=== PATIENT | male | born 2000 | race Caucasian/White ===

== ENCOUNTER 2023-10-16 09:53 | Emergency (ER) | payer OTHER, SELFPAY ==
[2023-10-16 09:58] VITALS: BP 138/84; PULSE 78; RESP 16; TEMP 37; O2SAT 97; BMI 22.1
--- NOTE | 2023-10-16 10:34 | ED_ITS ---
HPI - General Adult General Chief complaint: Unspecified Complaint, Adult Stated complaint: Needs to get tested for c.diff Time Seen by Provider: 10/16/23 09:58 History of Present Illness HPI narrative: This 23-year-old male comes in stating a concern that he may have contracted Clostridium difficile. He states that he recently used to toilet after someone who has this infection. He does not have any symptoms but is concerned that he may have acquired this. He also asks if he can be tested for sexually transmitted diseases. He states that he has not been tested for many years and does not report any current symptoms. Related Data Home Medications ?Medication ?Instructions ?Recorded ?Confirmed No Known Home Medications 10/16/23 10/16/23 Allergies Allergy/AdvReac Type Severity Reaction Status Date / Time No Known Drug Allergies Allergy Verified 10/16/23 10:03 Review of Systems Status of ROS: Reports: 10 or more systems reviewed and unremarkable except as noted in History and below Narrative: Constitutional: No fevers, no weight gain or loss. Eyes: No discharge. No vision changes. HENT: No congestion, no sore throat, no ear pain. Cardiovascular: No chest pain, no palpitations. Respiratory: No shortness of breath, no wheezes, no cough. Gastrointestinal: No abdominal pain, no vomiting, no diarrhea. Genitourinary: No dysuria, no hematuria. Musculoskeletal: Normal range of motion. Skin: No rashes, no pruritis. Neurological: No dizziness, weakness, sensory change, speech change. Endo/Heme/Allergies: No bruising or bleeding. No polydipsia. Pysch: no suicidality, no insomnia. All other systems reviewed and are negative. Exam Narrative: Exam Narrative: Constitutional: Well-developed, well-nourished, no acute distress. HEENT: Normocephalic, atraumatic. Neck: Normal range of motion. Nontender. Supple. Heart: Intact distal pulses. Lungs: No chest discomfort. No wheezes, rhonchi, or rales. Abdomen: Nontender. Back: Normal range of motion. Extremities: Normal range of motion. No injury. Skin: Intact. No rash. Warm. No erythema or pallor. Neurologic: No altered sensation. No weakness. Alert and oriented. Psychiatric: No suicidality. No anxiety or depression. No insomnia. Nursing notes and vitals signs are reviewed. Const: Vital Signs, click to edit/add: Vital Signs - 24 hr 10/16/23 09:58 Temperature 98.6 F Pulse Rate [Pulse Oximeter] 78 Respiratory Rate 16 Blood Pressure [Ri ght Upper Arm] 138/84 Pulse Oximetry 97 Oxygen Delivery Me thod Room Air Course Vital Signs Vital signs: Initial Vital Signs Temperature 98.6 F 10/16/23 09:58 Temperature Source Temporal Artery Scan 10/16/23 09:58 Pulse Rate 78 10/16/23 09:58 Respiratory Rate 16 10/16/23 09:58 Blood Pressure 138/84 10/16/23 09:58 Blood Pressure Mean 102 10/16/23 09:58 Blood Pressure Position Sitting 10/16/23 09:58 Pulse Oximetry 97 10/16/23 09:58 Oxygen Delivery Method Room Air 10/16/23 09:58 Vital Signs Temperature 98.6 F 10/16/23 09:58 Pulse Rate 78 10/16/23 09:58 Respiratory Rate 16 10/16/23 09:58 Blood Pressure 138/84 10/16/23 09:58 Pulse Oximetry 97 10/16/23 09:58 Oxygen Delivery Method Room Air 10/16/23 09:58 Temperature 98.6 F 10/16/23 09:58 Pulse Rate 78 10/16/23 09:58 Respiratory Rate 16 10/16/23 09:58 Blood Pressure 138/84 10/16/23 09:58 Pulse Oximetry 97 10/16/23 09:58 Oxygen Delivery Method Room Air 10/16/23 09:58 Medical Decision Making MDM Narrative Medical decision making narrative: This patient arrives with normal vital signs and really has no symptoms but has a fear that he may have contracted Clostridium difficile and also worries that he may have some lower [place] underlying sexually transmitted disease. He does not have any diarrhea or fever or other symptoms that are suspicious for any type of infection. He is not having any diarrhea so the lab will not do a test for Clostridium difficile unless the stool sample is runny. The patient is also asking for testing of his blood for sexually transmitted disease or anything he says to be sure that he is doing okay. I did order a complete blood count and HIV blood test. And he is okay to be discharged home and will be contacted if results are positive. Discharge Plan Discharge Clinical Impression: Feared condition not demonstrated Patient Disposition: Home, Self-Care Condition: Stable Additional Instructions: Continue current plans. Use [id number] meds as needed and directed. Follow up with MD return if worsening. Prescriptions: No Action No Known Home Medications Stand Alone Forms: [employer] Info Instructions
[2023-10-16 10:52] LABS: Basophils Absolute Auto 0.02 K/uL (0.00-0.30); Basophils Percent Auto 0.3 % (0.0-3.0); Eosinophils Absolute Auto 0.19 K/uL (0.00-0.50); Eosinophils Percent Auto 3.2 % (0.0-7.0); Hematocrit 42.2 % (37.0-53.0); Hemoglobin* 14.2 gm/dL (13.5-17.5); Lymphocytes Absolute Auto 1.73 K/uL (0.90-2.90); Lymphocytes Percent Auto 29.1 % (20-44); Mean Corpuscular HGB Conc 34 gm/dL (32-36); Mean Corpuscular Hemoglobin 29 pg (26-34); Mean Corpuscular Volume 87 fL (80-100); Monocytes Percent Auto 9.3 % (0.0-11.0); Neutrophils Absolute Auto 3.45 K/uL (1.7-7.0); Neutrophils Percent Auto 58.1 % (42.0-72.0); Platelet Count* 224 K/uL (140-440); RDW Coefficient of Variation % 12.6 % (11.5-15.5); Red Blood Count 4.86 m/uL (4.30-5.90); White Blood Count* 5.94 K/uL (4.50-11.00)
[2023-10-16 10:53] LABS: Slide Review Reflex No
[2023-10-16 22:47] LABS: HIV 1/2/P24 Combo Screen* Negative (Negative)
== END 2023-10-16 10:56 | disposition home or self-care (01) ==
LOC: ED 10:53
PROVIDERS: Emergency Provider Emergency Medicine Emergency Medical Services
DX: Z71.1 Person with feared health complaint in whom no diagnosis is made (principal)
CPT/HCPCS: 36415; 85025; 86703; 99282; 99284